=== PATIENT | female | born 1940 | race Caucasian/White ===

== ENCOUNTER 2018-08-30 14:45 | Outpatient (RCR) | payer OTHER ==
[~2018-08-30 14:45] MED LIST: 00186-0372-20 IH; ALBUTEROL0.83 MG/ML IH; AMBIEN 5MG TABLE5 MG PO; CALCIUM500 MG PO; COMBIVENT INH14.7 GM IH; FLONASE NASAL S16 GM NS; MOTRIN 200200 MG/TAB PO; MULTIPLE VITAMI1 CAP PO; NORCO 325 MG-51 TAB PO; POLYETHYLENE GL1 OI1 PO; PRILOSEC 20MG20 MG PO; PROVENTIL0.09 MG/A1 IH; SYNTHROID0.05 MG/TA PO; SYNTHROID0.088 MG/T PO; TEARS NATURALE15 M1 OP; TYLENOL 500MG500 MG PO; VITAMIN D1000 IU PO; VITAMIN D3400 IU PO
== END 2018-10-03 | disposition home or self-care (01) ==
LOC: MKS.ESL.PT
DX: S72.001D Fracture of unspecified part of neck of right femur, subsequent encounter for closed fracture with routine healing (principal)

== ENCOUNTER 2019-02-14 14:45 | Outpatient (RCR) | payer OTHER | END 2019-02-24 | LOC: MKS.ESL.PT | DX: R26.9 Unspecified abnormalities of gait and mobility (principal) ==

== ENCOUNTER 2019-03-21 12:39 | Emergency (ER) | payer MEDICARE, OTHER ==
[~2019-03-21] VITALS: Ht 152.4 cm; Wt 30.5 kg
[2019-03-21 12:44] VITALS: TEMP 97.7
[2019-03-21 13:27] LABS: BASO % 0.6 % (0.0-2.0); EOS # 0.1 (0.0-0.7); EOS % 0.8 % (0-4.0); GRAN # 5.1 (1.4-6.5); GRAN % 78.1 % (42.2-75.2); HEMOGLOBIN 12.2 g/dl (12.5-16.0); LYMPH # 0.8 (1.2-3.4); MEAN CELL VOLUME 96 fl (80.0-100.0); MEAN CORPUSCULAR HEMOGLOBIN 32 pg (27.0-31.0); MEAN CORPUSCULAR HGB CONC 33 g/dl (33.0-37.0); MEAN PLATELET VOLUME 9.8 fl (7.4-10.4); MONO # 0.5 (0.1-0.6); MONO % 8.2 % (1.7-9.3); PLATELET COUNT 307 K/mm3 (130-400); RED BLOOD COUNT 3.82 M/mm3 (4.10-5.30); REDCELL DISTRIBUTION WIDTH-CV 13.2 % (11.5-14.5)
[2019-03-21 13:30] LABS: HEMATOCRIT 36.5 % (37.0-47.0)
[2019-03-21 13:34] LABS: PROTHROMBIN TIME 12.1 SECONDS (9.7-12.8)
[2019-03-21 13:43] LABS: BILIRUBIN,TOTAL 0.6 mg/dL (0.0-1.0); CALCIUM 8.9 mg/dL (8.4-10.2); CREATININE, serum 0.38 (0.52-1.25); POTASSIUM 3.8 mmol/L (3.4-5.0); TOTAL PROTEIN 6.6 gm/dL (6.4-8.2)
[2019-03-21] MEDS ORDERED: NORCO 325 MG-51 TAB PO (13:54)
[2019-03-21 14:30] VITALS: BP 134/85; PULSE 97
== END 2019-03-21 14:30 | disposition home or self-care (01) ==
LOC: COL.ER 12:39
PROVIDERS: Emergency Medicine
DX: S22.31XA Fracture of one rib, right side, initial encounter for closed fracture (principal); S22.060A Wedge compression fracture of T7-T8 vertebra, initial encounter for closed fracture; J44.9 Chronic obstructive pulmonary disease, unspecified; F17.210 Nicotine dependence, cigarettes, uncomplicated; Z90.710 Acquired absence of both cervix and uterus; Z86.73 Personal history of transient ischemic attack (TIA), and cerebral infarction without residual deficits; W19.XXXA Unspecified fall, initial encounter; Z79.51 Long term (current) use of inhaled steroids

== ENCOUNTER 2019-04-11 10:19 | Outpatient (CLI) | payer MEDICARE, OTHER ==
[~2019-04-11] VITALS: Ht 147.3 cm; Wt 30.0 kg
[~2019-04-11 10:19] MED LIST changes: -CALCIUM500 MG PO; +LIQUIFILM TEARS15 ML OU; +MASON NATURAL2000 IU PO; +OSCAL 500 TAB500 MG PO; -TEARS NATURALE15 M1 OP; -VITAMIN D3400 IU PO
[2019-04-11] MEDS ORDERED: ALBUTEROL SULFAT3 M3 IH (10:58)
[2019-04-11] MEDS ORDERED: MUCUS RELIEF200 MG PO (11:03)
[2019-04-11] MEDS ORDERED: MOBIC15 MG PO (11:04)
[2019-04-11] MEDS ORDERED: MSIR10 MG/5 ML PO (11:05)
[2019-04-11] MEDS ORDERED: PROTONIX20 MG PO (11:06)
[2019-04-11] MEDS ORDERED: CARAFATE 1GM1 G PO (11:07)
[2019-04-11 11:24] VITALS: BP 154/96; PULSE 96; TEMP 98.3
--- NOTE | 2019-04-11 12:15 | NUR ---
Vertebroplasty cx by Dr. Crystal due to vertebral body height. Pt discharged per w/c by nurse with . Dr. Reeves notified of cancelled procedure and pt responding positive to suicide screen question "In the past month have you wished you were or wished you could go to sleep and not wake up?" Pt denies wanting to end her life. Dr. Reeves will f/u on outpt basis.
== END 2019-04-11 17:31 | disposition home or self-care (01) ==
LOC: COL.CAR 10:19
DX: M48.54XA Collapsed vertebra, not elsewhere classified, thoracic region, initial encounter for fracture (principal); S22.030A Wedge compression fracture of third thoracic vertebra, initial encounter for closed fracture; S52.572A Other intraarticular fracture of lower end of left radius, initial encounter for closed fracture

== ENCOUNTER 2019-05-18 15:23 | Inpatient (IN) | payer MEDICARE, OTHER ==
[~2019-05-18] VITALS: Ht 152.4 cm; Wt 35.0 kg
[~2019-05-18 15:23] MED LIST changes: +ALBUTEROL SULFAT3 M3 IH; +CARAFATE 1GM1 G PO; +MOBIC15 MG PO; +MSIR10 MG/5 ML PO; +MUCUS RELIEF200 MG PO; +PROTONIX20 MG PO
[2019-05-18 16:23] LABS: HEMATOCRIT 39.1 % (37.0-47.0); MEAN CELL VOLUME 96 fl (80.0-100.0); MEAN CORPUSCULAR HEMOGLOBIN 32 pg (27.0-31.0); MEAN CORPUSCULAR HGB CONC 33 g/dl (33.0-37.0); MEAN PLATELET VOLUME 9.2 fl (7.4-10.4); PLATELET COUNT 328 K/mm3 (130-400); RED BLOOD COUNT 4.06 M/mm3 (4.10-5.30); REDCELL DISTRIBUTION WIDTH-CV 13.2 % (11.5-14.5)
[2019-05-18 16:49] LABS: BAND 14 % (0-10); LYMPHOCYTE 5 % (20.0-51.0); NEUTROPHILS 79 % (42.0-75.2); PLATELET ESTIMATE NORMAL (NORMAL)
[2019-05-18 16:54] LABS: ALBUMIN 4.2 gm/dL (3.5-5.0); BILIRUBIN,TOTAL 0.4 mg/dL (0.0-1.0); C-REACTIVE PROTEIN 0.7 mg/dL (0.0-0.9); CALCIUM 9.3 mg/dL (8.4-10.2); CREATININE, serum 0.36 (0.52-1.25)
[2019-05-18 20:31] LABS: ARTERIAL BLD GAS O2 SATURATION 95.9 % (92-100); ARTERIAL BLD GAS TCO2 CT 32.9; ARTERIAL BLOOD GAS BASE EXCESS 4.2 (-2-2); ARTERIAL BLOOD GAS HCO3 31.2 meq/L (22-26); ARTERIAL BLOOD GAS PCO2 57.2 mmHg (35-45); ARTERIAL BLOOD GAS pH 7.35 (7.35-7.45)
--- NOTE | 2019-05-18 21:50 | NUR ---
PT ARRIVED TO UNIT BY ER NURSE, AMIRA. PT STABLE ON 2L NC O2. PT DAUGHTER AT BEDSIDE.
[2019-05-18 21:53] LABS: INR 0.9 (0.8-3.0); PROTHROMBIN TIME 10.8 SECONDS (9.7-12.8)
[2019-05-18 21:56] LABS: PARTIAL THROMBOPLASTIN TIME 31.1 SECONDS (26.0-37.0)
[2019-05-18 22:34] VITALS: BP 154/88; PULSE 112; TEMP 98
--- NOTE | 2019-05-18 22:57 | NUR ---
PT WEARS BRIEF.
[2019-05-19] VITALS: BP 153/100; PULSE 117
[2019-05-19 03:34] LABS: ARTERIAL BLD GAS O2 SATURATION 97.2 % (92-100); ARTERIAL BLD GAS TCO2 CT 31.9; ARTERIAL BLOOD GAS BASE EXCESS 4.5 (-2-2); ARTERIAL BLOOD GAS HCO3 30.4 meq/L (22-26); ARTERIAL BLOOD GAS PCO2 50.4 mmHg (35-45); ARTERIAL BLOOD GAS PO2 84.8 mmHg (80-100)
[2019-05-19 04:00] VITALS: BP 147/86; PULSE 105; TEMP 98.7
[2019-05-19 07:12] LABS: HEMATOCRIT 38.3 % (37.0-47.0); HEMOGLOBIN 12.6 g/dl (12.5-16.0); MEAN CELL VOLUME 97 fl (80.0-100.0); MEAN CORPUSCULAR HEMOGLOBIN 32 pg (27.0-31.0); MEAN CORPUSCULAR HGB CONC 33 g/dl (33.0-37.0); MEAN PLATELET VOLUME 9.6 fl (7.4-10.4); PLATELET COUNT 294 K/mm3 (130-400); RED BLOOD COUNT 3.94 M/mm3 (4.10-5.30); REDCELL DISTRIBUTION WIDTH-CV 13.2 % (11.5-14.5)
[2019-05-19 07:30] LABS: ALBUMIN 3.8 gm/dL (3.5-5.0); BILIRUBIN,TOTAL 0.7 mg/dL (0.0-1.0); CALCIUM 8.8 mg/dL (8.4-10.2); CREATININE, serum 0.47 (0.52-1.25); TOTAL PROTEIN 6.5 gm/dL (6.4-8.2)
[2019-05-19 07:53] LABS: BAND 17 % (0-10); LYMPHOCYTE 9 % (20.0-51.0); NEUTROPHILS 73 % (42.0-75.2); PLATELET ESTIMATE NORMAL (NORMAL)
[2019-05-19 08:30] VITALS: BP 120/73; PULSE 103; TEMP 98.3
--- NOTE | 2019-05-19 10:20 | NUR ---
PAID INTERNSH[employer] student met with deborah patient to discuss a discharge plan. The patient lives in [facility] with her , Matt. The patient uses oxygen, has a cane she uses daily and a walker, if needed. The patient reports her daughter, Albina assists with ADLs. The patient's PCP is Dr. Reeves and patient receives medications from [facility] in [place]. The patient reports he daughter, Albina picks up medications. The patient does not have advanced directives in the EMR but reports they are completed and designate her , Matt as primary and her daughter, Albina secondary. The patient also has a son, Mynor in [place]. guest services will continue to follow to ensure a safe discharge.
[2019-05-19 11:37] LABS: MAGNESIUM 1.8 mg/dL (1.6-2.3); PHOSPHOROUS 3.8 mg/dL (2.5-4.5)
[2019-05-19 11:44] LABS: PRE ALBUMIN 12.9 mg/dL (17.6-36.0)
--- NOTE | 2019-05-19 12:00 | NUR ---
Pts daughter Albina here to visit patient. Verbalizing plans to bring patient home to be comfortable, importance of quality of life vs quantity, then 20 min into conversation discussing history and concern for receipt of bone density medication.
[2019-05-19 12:30] VITALS: BP 151/78; PULSE 95; TEMP 98.1
--- NOTE | 2019-05-19 16:00 | NUR ---
Daughter requesting physician to discuss transferring patient to to see if other treatments are available for gallbladder situation. Julian notified and immediately comes to patient's room to receive and address family's concerns.
[2019-05-19 16:15] VITALS: BP 148/95; PULSE 101; TEMP 97.9
--- NOTE | 2019-05-19 19:00 | NUR ---
Report provided to oncoming shift. Patient has rested intermittently throughout shift. Pain managed with IVP morphine. BP correlates with dosing. (lower following receipt) Remains on 2L O2. RR 20s to 30s. HR noted up to 130s with exertion/coughing. returns to 90s low 100s with rest.
[2019-05-19 20:00] VITALS: BP 153/86; PULSE 115; TEMP 98.9
[2019-05-20] VITALS: BP 161/91; PULSE 117; TEMP 98.7
--- NOTE | 2019-05-20 01:12 | NUR ---
called provider, JULIA Peña regarding pts HR in the 120's, BP is stable and work of breathing is at her baseline. order is to continue to monitor pt.
[2019-05-20 04:00] VITALS: BP 140/77; PULSE 95; TEMP 98.6
[2019-05-20 05:19] LABS: HEMOGLOBIN 11.2 g/dl (12.5-16.0); MEAN CELL VOLUME 95 fl (80.0-100.0); MEAN CORPUSCULAR HEMOGLOBIN 32 pg (27.0-31.0); MEAN CORPUSCULAR HGB CONC 34 g/dl (33.0-37.0); MEAN PLATELET VOLUME 9.7 fl (7.4-10.4); PLATELET COUNT 261 K/mm3 (130-400); RED BLOOD COUNT 3.48 M/mm3 (4.10-5.30); REDCELL DISTRIBUTION WIDTH-CV 13.6 % (11.5-14.5)
[2019-05-20 05:21] LABS: HEMATOCRIT 33.2 % (37.0-47.0)
[2019-05-20 05:25] LABS: ALBUMIN 3.2 gm/dL (3.5-5.0); BILIRUBIN,TOTAL 0.5 mg/dL (0.0-1.0); CALCIUM 8.4 mg/dL (8.4-10.2); CREATININE, serum 0.41 (0.52-1.25); MAGNESIUM 1.9 mg/dL (1.6-2.3); PHOSPHOROUS 2.8 mg/dL (2.5-4.5); POTASSIUM 3.4 mmol/L (3.4-5.0); TOTAL PROTEIN 5.7 gm/dL (6.4-8.2)
[2019-05-20 05:38] LABS: BAND 11 % (0-10); LYMPHOCYTE 3 % (20.0-51.0); NEUTROPHILS 80 % (42.0-75.2); PLATELET ESTIMATE NORMAL (NORMAL)
[2019-05-20 08:09] VITALS: BP 134/78; PULSE 93; TEMP 97.1
[2019-05-20 12:30] VITALS: BP 130/82; PULSE 111; TEMP 97.6
--- NOTE | 2019-05-20 14:00 | NUR ---
PT ADMITTED TO FLOOR AT THIS TIME. RESTARTED TPN TO PICC LINE. UPON REPORT FROM IMCU RN, ONLY ONE BAG OF KCL WAS LEFT TO BE GIVEN, THIS NURSE STARTED THAT AND ZOSYN AT THIS TIME. LR WAS TO BE DISCONTINUED, THIS NURSE REMOVED IV FLUID.
[2019-05-20 15:00] LABS: COLLECTION METHOD CLEAN CATCH
[2019-05-20 15:08] LABS: MUCOUS Present /lpf; PH 6 (5-8); SQUAMOUS EPITHELIAL 0-2 /hpf; URINE APPEARANCE Clear; URINE BACTERIA Rare /hpf; URINE BILIRUBIN Negative (NEGATIVE); URINE BLOOD Negative (NEGATIVE); URINE COLOR Yellow; URINE GLUCOSE Negative (NEGATIVE); URINE KETONE Negative (NEGATIVE); URINE LEUKOCYTE ESTERASE Negative (NEGATIVE); URINE NITRATE Negative (NEGATIVE); URINE PROTEIN(semi-quant) Negative (NEGATIVE); URINE RBC 0-2 /hpf; URINE UROBILINOGEN Negative (NEGATIVE)
--- NOTE | 2019-05-20 15:28 | NUR ---
ironworker helper shop met attended palliative care meeting with patient, spouse, and daughter, Albina and Ramonfredrick. Patient is able to verbalize that her goals of care are to treat the current gall bladder issue and then pursue back surgery at . Albina and spouse verbalize agreement with these goals of care. Patient's primary care provider is Dr Plaza on the Red Team at the [facility]. Patient also utilizes Dr Reeves, locally. Albina speaks mostly as it difficult for patient to talk do to breathing difficulty. Albina verbalizes much frustration with the blended civilian and medical systems. Aaron and Rere offer support and idenitfy patient's goals of care. Albina states that Dr Reeves has stated that patient is terminal and is hospice appropriate, however, Albina does not provide support for this plan. Case management will continue to follow and assist with securing a safe discharge plan.
[2019-05-20 16:40] VITALS: BP 127/71; BP 127/714; PULSE 103; TEMP 98.8
--- NOTE | 2019-05-20 16:56 | NUR ---
Sat in the treatment team visit with pt and her daughter and then met with pt, her Harry, and daughter Albina this afternoon after transfered to room 358. 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 She has been having a lot of pain in her back, arm and abdomen this last year. She has had two kyphoplasties done at [facility]. Daughter reports that she has been told by [facility] and [facility] Graff's office that her mother is hospice appropriate and she should accept that.Daughter is not supportive of this goal and "want to put as many fingers in the dam as she can to allow her mother relief until it is her time". Pt herself is not yet ready to stop trying to get better but adds that "I don't know how much longer I will want to live if things don't get better". Support provided. Gallbladder treatment come first and will explore options for her management of compression fracture and broken arm which is currently in a splint. Surgical interventions are very limited due to her respiratory status. Advised we are here to help her in this hospital stay to work toward recovery and better pain management. Pt is a full code.
--- NOTE | 2019-05-20 19:30 | NUR ---
Report rcvd from KENNEDI Barone. Pt family is very involved in care of pt. Daughter Albina at bedside. Pt relies on daughter for all of her care. Pt prefers daughter to help her with toileting. Pt is using pursed-lipped breathing to manage air hunger. Pt is on 4L o2 with an oxymask, however during meals will use a nasal cannula with 2L o2. Pt has c/o pain (02/15) and discomfort whilst laying down. Asssessment completed. Call light and personal belongings within reach. No further concern at this time.
[2019-05-20 21:46] VITALS: BP 115/79; PULSE 105; TEMP 98.3
[2019-05-21 01:20] VITALS: BP 125/84; PULSE 106; TEMP 98.2
[2019-05-21 07:03] LABS: BASO % 0.1 % (0.0-2.0); EOS % 0.3 % (0-4.0); GRAN # 10.5 (1.4-6.5); GRAN % 91.2 % (42.2-75.2); HEMOGLOBIN 10.6 g/dl (12.5-16.0); LYMPH # 0.4 (1.2-3.4); LYMPH % 3.3 % (20.0-51.0); MEAN CELL VOLUME 98 fl (80.0-100.0); MEAN CORPUSCULAR HEMOGLOBIN 32 pg (27.0-31.0); MEAN CORPUSCULAR HGB CONC 33 g/dl (33.0-37.0); MONO # 0.5 (0.1-0.6); MONO % 4.6 % (1.7-9.3); PLATELET COUNT 261 K/mm3 (130-400); RED BLOOD COUNT 3.28 M/mm3 (4.10-5.30); REDCELL DISTRIBUTION WIDTH-CV 13.6 % (11.5-14.5)
[2019-05-21 07:07] LABS: HEMATOCRIT 32.2 % (37.0-47.0)
[2019-05-21 07:31] LABS: ALBUMIN 3.1 gm/dL (3.5-5.0); BILIRUBIN,TOTAL 0.4 mg/dL (0.0-1.0); CREATININE, serum 0.33 (0.52-1.25); MAGNESIUM 2.1 mg/dL (1.6-2.3); PHOSPHOROUS 3.3 mg/dL (2.5-4.5); TOTAL PROTEIN 5.6 gm/dL (6.4-8.2)
[2019-05-21 07:59] VITALS: BP 136/81; PULSE 102; TEMP 97.9
--- NOTE | 2019-05-21 08:00 | NUR ---
Report given to KENNEDI Valentine. Pt had a very rough night. Breathing became more labored, however, her o2 saturations remained >94%. Pt daughter, Albina, is very concerned regarding care of pt. Both Pt and daughter have stated they would prefer to be transferred to . Daughter will discuss during rounding. No further concerns at this time.
--- NOTE | 2019-05-21 08:56 | NUR ---
Patient resting in bed. Very frail in apperance. Her very involved daughter at bedside. Patient is expecting alot of visitors today. Patient reporting pain 8/10. She is hesitant to take pain medication. One tab norco provided. Patient breakfast has arrived in room, minimal interest. denies nausea. Picc to Rue-Tpn per orders. Patient on o2 via oximask, breathing in labored. Wheezing noted. closely monitoring.
[2019-05-21 12:26] VITALS: BP 114/67; PULSE 109; TEMP 97.4
[2019-05-21 16:43] VITALS: BP 115/72; PULSE 115; TEMP 98.1
--- NOTE | 2019-05-21 17:11 | NUR ---
Patient resting in bed. Visiting with her sister. She has been happy to see her today. Patient spouse, grandson, daugher at bedside as well. Patient breathing remains labored. Morphine seems to help some with air hunger. O2 via oximask. Rapelje for pain as well. Pain in abdomen. Patient did have an episode of nausea today after drinking orange juice and an ensure. She has had minimal po intake. Po intake encouraged. Tpn remains to Rue. Scds refused. Patient using bedpan to void, her daughter assist. Was able to see her coccyx no visible breakdown at this time. Repositioning in bed encouraged.
[2019-05-21 20:53] VITALS: BP 133/76; PULSE 93; TEMP 97.8
[2019-05-21 23:19] VITALS: BP 147/79; PULSE 127; TEMP 98.3
[2019-05-22 03:35] VITALS: BP 127/85; PULSE 133; TEMP 98.1
[2019-05-22 06:09] LABS: CALCIUM 8.1 mg/dL (8.4-10.2); CREATININE, serum 0.3 (0.52-1.25); PHOSPHOROUS 3.9 mg/dL (2.5-4.5); POTASSIUM 4.5 mmol/L (3.4-5.0)
[2019-05-22 08:26] VITALS: BP 147/78; PULSE 103; TEMP 97.4
[2019-05-22 09:30] LABS: BASO % 0.1 % (0.0-2.0); EOS # 0.1 (0.0-0.7); EOS % 0.5 % (0-4.0); GRAN # 8.7 (1.4-6.5); GRAN % 88.2 % (42.2-75.2); HEMOGLOBIN 10.6 g/dl (12.5-16.0); LYMPH # 0.3 (1.2-3.4); LYMPH % 3.2 % (20.0-51.0); MEAN CELL VOLUME 102 fl (80.0-100.0); MEAN CORPUSCULAR HEMOGLOBIN 32 pg (27.0-31.0); MEAN CORPUSCULAR HGB CONC 31 g/dl (33.0-37.0); MEAN PLATELET VOLUME 10.2 fl (7.4-10.4); MONO # 0.7 (0.1-0.6); MONO % 7.5 % (1.7-9.3); PLATELET COUNT 273 K/mm3 (130-400); RED BLOOD COUNT 3.33 M/mm3 (4.10-5.30); REDCELL DISTRIBUTION WIDTH-CV 13.8 % (11.5-14.5)
[2019-05-22 09:34] LABS: HEMATOCRIT 33.8 % (37.0-47.0)
[2019-05-22 12:32] VITALS: BP 134/117; PULSE 116; TEMP 97.3
[2019-05-22 17:58] VITALS: BP 104/79; PULSE 92; TEMP 97.4
--- NOTE | 2019-05-22 19:08 | NUR ---
Report rcvd from KENNEDI Dunn.
--- NOTE | 2019-05-22 19:31 | NUR ---
Pt resting in the room, have been dosing with pain medications on a regular basis for relief, family has remaind in the room with the Pt, Pt was able to answer questions appropriately, VS have remained stable.
[2019-05-22 19:55] VITALS: BP 110/50; PULSE 81; TEMP 98.2
[2019-05-23 01:08] VITALS: BP 143/82; PULSE 129; TEMP 98.4
[2019-05-23 03:23] VITALS: BP 146/93; PULSE 122; TEMP 97.8
[2019-05-23 06:12] LABS: CALCIUM 7.9 mg/dL (8.4-10.2); CREATININE, serum 0.29 (0.52-1.25); MAGNESIUM 1.9 mg/dL (1.6-2.3); PHOSPHOROUS 3.6 mg/dL (2.5-4.5); POTASSIUM 4.7 mmol/L (3.4-5.0)
[2019-05-23 07:25] VITALS: BP 141/81; PULSE 121; TEMP 98
--- NOTE | 2019-05-23 08:00 | NUR ---
Assessment complete. Pt sitting up in bed, resp labored and tachy. Pt reports pain is manageable at this time, refuses medication with her sister coming to visit. TPN infusing per orders to right upper arm PICC line without s/s of complications. No further needs reported. Call light in reach.
--- NOTE | 2019-05-23 09:30 | NUR ---
Pt with large incontinence of urine, linens changed to entire bed, pt's resp increased with movement, pt requesting to rest for awhile. Oxymask placed back on per pt's request. Call light in reach.
--- NOTE | 2019-05-23 11:25 | NUR ---
Pt and daughter along with sister, nelson, and friend met with pt to discuss direction of care and more of a focus on comfort. Pt's status appears to have declined even since Thursday and daughter is more directed toward a cocus on comfort at this time. She feels her mother may not live through the day today and that this is the time that she is telling family goodbye. Support provided. We are focusing comfort care at this time and pt was provided with a comfort quilt with explanation to daughter, Albina. A comfort basket has been ordered. Will continue to oprovide support to this family in this time of facing a lifelimiting illness.
--- NOTE | 2019-05-23 13:40 | NUR ---
Pt reports continued pain after IV morphine administered. PRN Roxanol administered per orders and pt's request. Pt with continuous dyspnea at rest. O2 in place via OM. No further needs reported. Call light in reach.
--- NOTE | 2019-05-23 17:35 | NUR ---
Pt reports nausea. PRN medication administered per orders, denies further needs. Call light in reach.
--- NOTE | 2019-05-23 20:00 | NUR ---
Received report from KENNEDI Priest. Assessment complete. Pt on comfort care. Dtr at bedside. Pt denies pain at this time. Pt aware of PRN pain meds. On 3L O2 via oxi mask. PRN breathing treatment given per dtrs request and acceptance of pt. Needs met. Call light within reach.
--- NOTE | 2019-05-24 03:42 | NUR ---
At approximately 2315, KENNEDI Vidal answered call light. Pt dtr had concerns about pts increased breathing/air hunger. Marcy checked Sp02, 98%. Marcy then went on to explainwith pts dtr about PRN meds to provide comfort care and to reduce air hunger. Pt dtr and pt agreed to PRN comfort meds. Ativan 1mg administered at 2335. At approximately 0200 this RN answered call light by pts dtr to address concern for pts' oximask. Pt dtr requested for a smaller mask as the mask kept coming off her face and had concerns about the mask coming off if she(dtr) fell asleep. Educated dtr that a smaller mask is not not needed and I adjusted the elastic to fit comfortably around her head and face. Dtr had concerns about care and seemed frustrated about her POC. I explained to dtr about her comfort care measures, dtr understood and did not want any PRN meds at this time. At approx 0300, KENNEDI Nicole answered call light. Pt dtr still had concerns about oximask. Bonnie re-eduated dtr that the mask is fitted well and also re-educated dtr about POC for pt. Dtr verbalized understanding of POC but still expressed concerns which contradict comfort based goals.
--- NOTE | 2019-05-24 07:11 | NUR ---
Report given to KENNEDI Kumar.
--- NOTE | 2019-05-24 08:30 | NUR ---
The patient was put on comfort measures on 05/23. printing services coordinator will continue to monitor for patient and family needs.
--- NOTE | 2019-05-24 09:16 | NUR ---
visited with patient familly this am about breathing treaments PRN. THEY WERE CONCERNED ABOUT NOT GETTING ANY BREATHING TREATMENTS THE PATIENT WAS ON COMFORT CARE. i ASSURED THEM I WOULD ASSESS THE PATIENT EVERY 4 HOURS FOR NEEDING BREATHING TREATMENTS. OF PATIENT HAD NO NEED OF A BREATHING TREATMENT AND DISCUSSED IT WITH FAMILY.
--- NOTE | 2019-05-24 09:22 | NUR ---
Patient is comfort cares, family is present in the room/ daughter is still a little confused as to why certain treatments were stopped but understand that we are trying to keep her comfortable, I have discussed family concerns with the hospitalist and we will all go in and discussed plan of care/goals with family again this morning
--- NOTE | 2019-05-24 11:30 | NUR ---
Have been working with family and patient this am. Daughter does not want to feel that her mother is being denied any treatments. We have reviewed her meds with her daughter and Dr Chavez has agreed to continue her regular meds. Sukh Efrain has agreed to come check her status every 4 hours. Daughter had requested a pediatric mask for her mother but that mask is very small and would not cover her nose and mouth effectively. Daughter and have requested a second opinion/transfer to [facility] regarding her gallbladder problem. Daughter states "If it would give her 5 more days, it would be worth it". Dr Chavez has forwarded scans and clinical information to them and we are awaiting response. We have provided supportive guidance to family and patient.
--- NOTE | 2019-05-24 19:15 | NUR ---
Patient requested PRN roxanol for generalized pain. Denies other needs at this time. Daughter at bedside. Assessment complete. Diminished throughout. Dyspnea with talking. No edema noted. PICC to right upper flushed without complications. Call light in reach. Will monitor.
--- NOTE | 2019-05-24 20:30 | NUR ---
Resting in bed. Denies needs. Daughter at bedside. Call light in reach.
--- NOTE | 2019-05-24 21:42 | NUR ---
Daughter reports restlessness. Patient pulled oxygen tubing, unable to rest. Provided with PRN ativan at this time.
--- NOTE | 2019-05-24 23:20 | NUR ---
Resting in bed with daughters at bedside. Denies needs. Call light in reach.
--- NOTE | 2019-05-25 04:35 | NUR ---
Resting in bed with daughters at bedside. Daughter reports patient having apneic episode while sleeping, resolved with touch. Denies any reports of discomfort or pain from patient. Reports patient sleeping well without difficulty. Call light in reach. Will monitor.
--- NOTE | 2019-05-25 05:45 | NUR ---
Patient received x1 dose of roxanol and x1 dose of ativan throughout night. Daughters remained at bedside throughout night. Family denies needs this AM. Will continue to monitor.
--- NOTE | 2019-05-25 07:12 | NUR ---
Report given to KENNEDI Priest
--- NOTE | 2019-05-25 08:00 | NUR ---
Assessment complete. Pt resting in bed, alert to stimuli, struggling to talk between respirations. O2 at 4 L/min via OM. Pt's family at bedside agrees to notify nurse of any needs for comfort throughout the shift. No further needs reported. Call light in reach.
--- NOTE | 2019-05-25 09:40 | NUR ---
I attending rounding done by Dr Hunt with two daughters, Albina and Lizabeth, in the patient's room. Pt did not awaken. Dr Chavez asnwered questions from daughters. Lizabeth did express that it difficult to make this decision without knowing what is really wrong with their mother: is it cancer, is it a stone, what is the problem? They will discuss what services they will want and where they want Celina cared for. Georgina with secondary social studies teacher will work with them when pt's arrives and they will discuss where they go from here.
--- NOTE | 2019-05-25 14:23 | NUR ---
NOMAN and [facility] Care Nurse met with the family to discuss hospice options. NOMAN presented Medicare.gov's list of home hospice providers, a list of nursing homes and provided verbal information about the [facility]. The family will discuss the options then inform NOMAN of decision. food services coordinator will monitor.
--- NOTE | 2019-05-25 14:50 | NUR ---
Pt's family requests to speak with this nurse. Upon entering room, pt's daughter reports pt is gasping more now. This nurse notes resp have slowed and more of a gasp with shoulder movement and facial grimace. Pt with eyes closed, not responding to stimuli. PRN Roxanol administered for air hunger. Family verbalizes understanding.
--- NOTE | 2019-05-25 15:25 | NUR ---
Call from Oncology Nurse requesting Heavy Equipment Mechanic for Patient requiring Last Rites. contacted Fr. Shetty from [facility] and is on his way.
--- NOTE | 2019-05-25 18:20 | NUR ---
Pt with agonal breathing, dusky in color. Pt's preparing to go home for the night. Other family remaining at bedside. O2 remains in place. No further needs reported.
--- NOTE | 2019-05-25 19:30 | NUR ---
Resting in bed with family at bedside. Agonal breathing present. Patient family reports apneic episodes. Patient dusky appearing-slow shallow breathing. Breathing without difficult at this time. Will continue to monitor.
--- NOTE | 2019-05-25 21:00 | NUR ---
Patient appears dusky. Breathing without difficulty. Family at bedside. Provided with refreshments. Denies other needs.
--- NOTE | 2019-05-25 22:15 | NUR ---
Resting in bed with family at bedside. Breathing without difficulty at this time. Family denies needs.
--- NOTE | 2019-05-26 00:31 | NUR ---
Resting comfortably at this time. Family at bedside. Denies needs at this time.
--- NOTE | 2019-05-26 00:45 | NUR ---
Patient at this time. Verified by KENNEDI Nielson and this nurse. [place] supervisior-Robbie Madrid RN and Mariana Arcos APRN notified.
--- NOTE | 2019-05-26 02:10 | NUR ---
Post mortum cares provided at this time.
--- NOTE | 2019-05-26 02:40 | NUR ---
Patient left with [facility] at this time. PICC line in right upper arm left in per homes request. Mariana Arcos APRN seen patient prior to leaving.
== END 2019-05-26 02:40 | disposition expired | DRG 871 ==
LOC: COL.ER 15:23 → IMCU 19:15 → ICU 19:15 → IMCU 20:09 → MEDICAL 05-20 13:44
PROVIDERS: Family Medicine; Internal Medicine; Nurse Practitioner Family; ADMIT Hospitalist
PROC: 02HV33Z Insertion of Infusion Device into Superior Vena Cava, Percutaneous Approach (ICD-10-PCS; principal; 2019-05-18)
PROC: 02HV33Z Insertion of Infusion Device into Superior Vena Cava, Percutaneous Approach (ICD-10-PCS; 2019-05-19)
DX: A41.9 Sepsis, unspecified organism (principal); E43 Unspecified severe protein-calorie malnutrition; Z68.1 Body mass index [BMI] 19.9 or less, adult; J96.12 Chronic respiratory failure with hypercapnia; J96.11 Chronic respiratory failure with hypoxia; G93.49 Other encephalopathy; K81.0 Acute cholecystitis; R64 Cachexia; J44.9 Chronic obstructive pulmonary disease, unspecified; E03.9 Hypothyroidism, unspecified; M81.0 Age-related osteoporosis without current pathological fracture; F17.210 Nicotine dependence, cigarettes, uncomplicated; Z51.5 Encounter for palliative care; R73.9 Hyperglycemia, unspecified; Z66 Do not resuscitate; Z88.8 Allergy status to other drugs, medicaments and biological substances; Z88.1 Allergy status to other antibiotic agents; Z88.3 Allergy status to other anti-infective agents; Z91.041 Radiographic dye allergy status; Z90.710 Acquired absence of both cervix and uterus; Z99.81 Dependence on supplemental oxygen; Z98.42 Cataract extraction status, left eye; Z98.41 Cataract extraction status, right eye; Z79.891 Long term (current) use of opiate analgesic
CPT/HCPCS: 99222-AI; 99232-AI; 99233-AI; 99239; A4217; C1751; C9113; J0610; J1170; J1200; J2060; J2270; J2405; J2543; J2550; J2930; J3411; J3475; J3480; J7030; J7120; J7131; Q9967